=== PATIENT | male | born 1985 | race Caucasian/White ===

== ENCOUNTER → 2016-11-29 | Outpatient (REF) | payer OTHER | END | disposition home or self-care (01) | LOC: M LABDRWAD 12:19 → M LABNEURO 12:19 | PROVIDERS: ATTEND Physician Assistant | DX: Z20.2 Contact with and (suspected) exposure to infections with a predominantly sexual mode of transmission (principal) ==

== ENCOUNTER → 2016-12-03 | Outpatient (REF) | payer OTHER | END | disposition home or self-care (01) | LOC: M LAB REF 12:17 | PROVIDERS: ATTEND Physician Assistant | DX: Z20.2 Contact with and (suspected) exposure to infections with a predominantly sexual mode of transmission (principal); R21 Rash and other nonspecific skin eruption ==

== ENCOUNTER → 2017-08-26 | Outpatient (REF) | payer OTHER | LOC: M LAB REF 19:34 | PROVIDERS: ATTEND Physician Assistant | DX: J02.9 Acute pharyngitis, unspecified (principal) ==

== ENCOUNTER 2018-02-03 06:17 | Day surgery (SDC) | payer OTHER ==
[2018-02-03] MEDS ORDERED: LIDOCAINE 1% MDV 20ML VIAL SQ (06:30)
[2018-02-03] MEDS: LR 1,000 ML IV (07:09)
[2018-02-03] MEDS ORDERED: ONDANSETRON 4MG/2ML VIAL (J2405) As Ordered ×2 (07:42→21:05)
[2018-02-03] MEDS ORDERED: MIDAZOLAM INJ 2 MG/2 ML VIAL (J2250) As Ordered ×2 (07:42→20:41)
[2018-02-03] MEDS ORDERED: fentaNYL 100 MCG/2 ML INJECTION (J3010) As Ordered ×3 (07:42→20:42)
[2018-02-03] MEDS ORDERED: METOCLOPRAMIDE INJ 10MG/2ML VIAL (J2765) As Ordered ×2 (07:42→21:05)
[2018-02-03] MEDS ORDERED: dexameTHASONE 4 MG/ML 1ML VIAL (J1100) As Ordered (07:42)
[2018-02-03] MEDS ORDERED: ROCURONIUM BROMIDE 50 MG/5 ML VIAL As Ordered (07:42)
[2018-02-03] MEDS ORDERED: SUCCINYLCHOLINE 100 MG/5 ML SYRINGE (J0330) As Ordered ×2 (07:42→21:05)
[2018-02-03] MEDS ORDERED: LIDOCAINE 2% INJ 100 MG/5 ML SDV (FOR ANES.) As Ordered ×2 (07:42→21:05)
[2018-02-03] MEDS ORDERED: PROPOFOL 200 MG/20 ML VIAL As Ordered ×2 (07:42→21:05)
[2018-02-03] MEDS: LIDOCAINE 1% SDV INJ 30 ML VIAL As Ordered (07:45)
[2018-02-03] MEDS: BUPIVACAINE HCL 0.25% 30 ML VIAL As Ordered (07:46)
[2018-02-03] MEDS ORDERED: MEPERIDINE INJ 25 MG/ML VIAL (J2175) As Ordered (08:17)
[2018-02-03] MEDS: MEPERIDINE INJ 25 MG/ML VIAL (J2175) IV ×2 (08:24→08:29)
[2018-02-03] MEDS ORDERED: HYDROcodone/APAP LIQUID 7.5-325MG 15ML UDC (LORTAB ELIXIR) As Ordered (08:33)
[2018-02-03] MEDS: HYDROcodone/APAP LIQUID 7.5-325MG 15ML UDC (LORTAB ELIXIR) PO (08:39)
[2018-02-03] MEDS ORDERED: LR 1,000 ML IV (08:45)
[2018-02-03] MEDS ORDERED: fentaNYL 100 MCG/2 ML INJECTION (J3010) IV (08:45)
[2018-02-03] MEDS ORDERED: PERCOCET 5MG/325MG TAB PO (08:45)
[2018-02-03] MEDS ORDERED: ONDANSETRON 4MG/2ML VIAL (J2405) IV (08:45)
[2018-02-03] MEDS ORDERED: METOCLOPRAMIDE INJ 10MG/2ML VIAL (J2765) IV (08:45)
[2018-02-03] MEDS ORDERED: LIDOCAINE VISCOUS 2% SOLN 15ML UDC PO (08:45)
== END 2018-02-03 09:33 | disposition home or self-care (01) ==
LOC: M SDC 06:17
DX: J35.01 Chronic tonsillitis (principal); J35.8 Other chronic diseases of tonsils and adenoids; K21.9 Gastro-esophageal reflux disease without esophagitis; G25.81 Restless legs syndrome; Z79.899 Other long term (current) drug therapy
CPT/HCPCS: 42826

== ENCOUNTER 2018-02-03 19:13 | Day surgery (SDC) | payer OTHER ==
[2018-02-03] MEDS ORDERED: BUPIVACAINE HCL 0.5% 30 ML VIAL As Ordered (20:56)
[2018-02-03] MEDS ORDERED: HYDROcodone/APAP LIQUID 7.5-325MG 15ML UDC (LORTAB ELIXIR) As Ordered (21:32)
[2018-02-03] MEDS: ANEXSIA, NORCO 7.5MG/325MG TABLET(HYDROCODONE/APAP) PO (21:39)
[2018-02-03] MEDS ORDERED: ONDANSETRON 4MG/2ML VIAL (J2405) IV (21:45)
[2018-02-03] MEDS ORDERED: PERCOCET 5MG/325MG TAB PO (21:45)
[2018-02-03] MEDS ORDERED: LR 1,000 ML IV (21:45)
[2018-02-03] MEDS ORDERED: fentaNYL 100 MCG/2 ML INJECTION (J3010) IV (21:45)
[2018-02-03] MEDS ORDERED: MEPERIDINE INJ 25 MG/ML VIAL (J2175) IV (21:45)
[2018-02-03] MEDS ORDERED: METOCLOPRAMIDE INJ 10MG/2ML VIAL (J2765) IV (21:45)
== END 2018-02-03 22:20 | disposition home or self-care (01) ==
LOC: M SDC 22:20 → M ED 19:13 → M SDC 20:37
DX: J95.830 Postprocedural hemorrhage of a respiratory system organ or structure following a respiratory system procedure (principal); K21.9 Gastro-esophageal reflux disease without esophagitis; G25.81 Restless legs syndrome; Z79.899 Other long term (current) drug therapy
CPT/HCPCS: 42962

== ENCOUNTER → 2018-04-07 | Outpatient (CLI) | payer OTHER | LOC: M ST 11:00 | DX: R13.10 Dysphagia, unspecified (principal) ==

== ENCOUNTER 2018-04-24 16:13 | Outpatient (RCR) | payer OTHER | END 2018-05-13 | LOC: M ST 16:13 | DX: Z51.89 Encounter for other specified aftercare (principal); R13.10 Dysphagia, unspecified ==

== ENCOUNTER 2018-06-26 14:13 | Emergency (ER) | payer OTHER | END 2018-06-26 16:15 | disposition home or self-care (01) | LOC: M ED 14:13 | DX: S60.221A Contusion of right hand, initial encounter (principal); S60.00XA Contusion of unspecified finger without damage to nail, initial encounter; W23.0XXA Caught, crushed, jammed, or pinched between moving objects, initial encounter; Y92.89 Other specified places as the place of occurrence of the external cause; K21.9 Gastro-esophageal reflux disease without esophagitis; B02.9 Zoster without complications; F90.9 Attention-deficit hyperactivity disorder, unspecified type; Z79.899 Other long term (current) drug therapy | CPT/HCPCS: 73130 ==

== ENCOUNTER → 2019-11-11 | Outpatient (CLI) | payer OTHER ==
[~2019-11-11] MED LIST: ADDE20CA3 PO; CLAR1TAB2 PO; FLON1SPR; HYDR-2809 PO; IBUP0.77 PO; LIDO1SOL8 MT; MUCI600T31 PO; NAPR-837 PO; OMEP40CA97 PO; VALT500T PO; ZZZQ25CA PO
--- NOTE | 2019-11-11 11:28 | REP ---
Clinical: Trauma. Technique: AP, lateral, bilateral oblique views right foot . Findings: The osseous structures and joint spaces are intact and normal. There is no evidence for acute fracture or dislocation. Surrounding soft tissues are unremarkable. No subcutaneous emphysema or radiodense foreign body. Impression: Age-appropriate right foot series . No acute fracture or dislocation. Electronically Signed by Bakari Dobbs MD 11/11/2019 11:19 A
== END ==
LOC: M LRY 11:08
PROVIDERS: ATTEND Physician Assistant
DX: S99.921A Unspecified injury of right foot, initial encounter (principal); X58.XXXA Exposure to other specified factors, initial encounter; Y92.89 Other specified places as the place of occurrence of the external cause; Y93.9 Activity, unspecified; Y99.9 Unspecified external cause status

== ENCOUNTER → 2021-09-11 | Outpatient (CLI) | payer OTHER ==
[~2021-09-11] MED LIST changes: -HYDR-2809 PO; +HYDR-4431 PO; -LIDO1SOL8 MT; +LIDO2SOL17 MT; +OMEP40CA4 PO; -OMEP40CA97 PO
--- NOTE | 2021-09-11 15:39 | REP ---
INDICATION: MURDOCK. COMPARISON: 05/26/2015 TECHNIQUE: PA and lateral FINDINGS: The superior mediastinal structures are midline. The cardiac silhouette is unremarkable in size, shape, and position. The diaphragmatic surfaces of the lungs are regular, and the costophrenic angles are clear. The pulmonary brown are clear. The imaged osseous structures are intact. IMPRESSION: There is no acute cardiopulmonary disease. <Electronically signed by Brayden Desai > 09/11/21 [id number]
== END ==
LOC: M ADAMS 15:21
PROVIDERS: ATTEND Physician Assistant Medical
DX: R06.00 Dyspnea, unspecified (principal); R06.2 Wheezing

== ENCOUNTER → 2021-09-28 | Outpatient (CLI) | payer OTHER ==
--- NOTE | 2021-09-28 08:27 | PFTRPT ---
Site: [facility], [address] [place] [address], [id number] ID: [id number] Name: YUE BYRD Visit Date: 09/28/2021 Second ID: [id number] Referring Doctor: Madina Singleton PA-C Reviewing Doctor: Eber Perez MD Computing Machine Operator: Manjula GUY RRT Age: 36 : 1985 Sex: Male Race: Height: 73.00 Inches Weight: 220.00 Lbs BSA: 2.24 Order IDs: [id number] Requested Test(s): <RESP-PFT.PFT B/A> Diagnosis: R06.00 test meet the ATS standards for acceptability and repeatability. Pt was given four puffs of albuterol for post bronchodilator. Review Status: Not Reviewed Pre-Bronch Post-Bronch Pred Actual %Pred Actual %Chng SPIROMETRY FVC (L) 5.86 5.21 88 5.45 4 FEV1 (L) 4.67 4.53 97 4.49 FEV1/FVC (%) 80 87 108 82 -5 FEF 25% (L/sec) 8.67 10.45 120 9.19 -12 FEF 50% (L/sec) 5.48 6.54 119 6.65 1 FEF 75% (L/sec) 2.08 2.83 136 3.22 13 FEF 25-75% (L/sec) 4.39 5.73 130 5.91 3 FEF Max (L/sec) 10.91 11.05 101 10.20 -7 FIVC (L) 5.01 5.36 6 FIF 50% (L/sec) 5.31 6.80 128 7.43 9 FIF Max (L/sec) 7.26 7.49 3 MVV (L/min) 179 162 90 Expiratory Time (sec) 6.38 6.17 -3 Back Extrap Vol (L) 0.14 0.12 -14 Time To FEFmax (sec) 0.082 0.070 -14 LUNG VOLUMES SVC (L) 5.59 5.23 93 IC (L) 3.73 3.72 99 ERV (L) 1.86 1.51 81 TGV (L) 3.80 3.48 91 RV (Pleth) (L) 1.94 1.97 101 TLC (Pleth) (L) 7.53 7.21 95 RV/TLC (Pleth) (%) 26 27 105 DIFFUSION DLCOunc (ml/min/mmHg) 34.84 34.67 99 DL/VA (ml/min/mmHg/L) 4.63 5.05 109 VA (L) 7.53 6.86 91 BHT (sec) 9.94 IVC (L) 5.13 TLC (SB) (L) 7.01 AIRWAYS RESISTANCE Raw (cmH2O/L/s) 1.45 0.56 38 Gaw (L/s/cmH2O) 1.03 1.79 173 sRaw (cmH2O*s) 4.76 1.85 38 sGaw (1/cmH2O*s) 0.20 0.54 270
== END ==
LOC: M CARPUL 07:50
PROVIDERS: ATTEND Physician Assistant Medical
DX: R06.00 Dyspnea, unspecified (principal)

== ENCOUNTER → 2022-11-24 | Outpatient (CLI) | payer OTHER | LOC: M RAD 16:29 | PROVIDERS: ATTEND Physician Assistant | DX: M51.16 Intervertebral disc disorders with radiculopathy, lumbar region (principal) ==

== ENCOUNTER → 2022-12-15 | Outpatient (CLI) | payer OTHER ==
[~2022-12-15] MED LIST changes: +LIDO15SO4 MT; -LIDO2SOL17 MT
== END ==
LOC: M RAD 09:57
PROVIDERS: ATTEND Physician Assistant
DX: M51.16 Intervertebral disc disorders with radiculopathy, lumbar region (principal)

== ENCOUNTER → 2022-12-31 | Outpatient (CLI) | payer OTHER ==
[~2022-12-31] MED LIST changes: +PROHANCE 279.3MG/ML 15ML VIAL As Ordered ONE; +PROHANCE 279.3MG/ML 5ML VIAL As Ordered ONE
== END ==
LOC: M RAD 13:57
PROVIDERS: ATTEND Physician Assistant
DX: M51.16 Intervertebral disc disorders with radiculopathy, lumbar region (principal)

== ENCOUNTER → 2023-02-03 | Outpatient (CLI) | payer OTHER ==
[~2023-02-03] MED LIST changes: -PROHANCE 279.3MG/ML 15ML VIAL As Ordered ONE; -PROHANCE 279.3MG/ML 5ML VIAL As Ordered ONE
== END ==
LOC: M RAD 08:44
PROVIDERS: ATTEND Physician Assistant Medical
DX: K82.4 Cholesterolosis of gallbladder (principal); R16.0 Hepatomegaly, not elsewhere classified

== ENCOUNTER → 2023-04-07 | Outpatient (CLI) | payer OTHER ==
[~2023-04-07] MED LIST changes: +LIDO15SO MT; -LIDO15SO4 MT
== END ==
LOC: M WHC 08:05
PROVIDERS: ATTEND Physician Assistant Medical
DX: R22.32 Localized swelling, mass and lump, left upper limb (principal); R59.1 Generalized enlarged lymph nodes

== ENCOUNTER → 2023-04-18 | Outpatient (CLI) | payer OTHER ==
[~2023-04-18] MED LIST changes: +LIDOCAINE 1% MDV 20ML VIAL As Ordered ONE
[2023-04-18 11:37] VITALS: BP 154/85
== END ==
LOC: M IRPRO 11:05
PROVIDERS: ATTEND Physician Assistant Medical
DX: R59.1 Generalized enlarged lymph nodes (principal)

== ENCOUNTER 2023-06-14 08:22 | Emergency (ER) | payer OTHER ==
[~2023-06-14] VITALS: Ht 185.4 cm; Wt 94.9 kg
[~2023-06-14 08:22] MED LIST changes: -LIDOCAINE 1% MDV 20ML VIAL As Ordered ONE
[2023-06-14] MEDS ORDERED: DICY-61 PO (08:31)
[2023-06-14 09:11] LABS: BASO % 0.3 % (0.0-1.0); EOS % 0.1 % (0.0-3.0); HEMATOCRIT 49.3 % (42.0-52.0); HEMOGLOBIN 16.9 g/dl (13.5-17.5); LYMPH # 0.7 10^3/uL (1.5-5.0); LYMPH % 6.2 % (24.0-44.0); MEAN CORPUSCULAR HEMOGLOBIN 29.8 pg (27.0-33.0); MEAN CORPUSCULAR HGB CONC 34.3 g/dl (32.0-36.5); MEAN CORPUSCULAR VOLUME 86.9 fl (80.0-96.0); MONO # 0.6 10^3/uL (0.0-0.8); NEUTROPHILS # 10.4 10^3/uL (1.5-8.5); NEUTROPHILS % 86.7 % (36.0-66.0); PLATELET COUNT, AUTOMATED 241 10^3/uL (150-450); RED BLOOD COUNT 5.67 10^6/uL (4.30-6.10)
[2023-06-14 09:32] LABS: LIPASE 29 U/L (12-53)
[2023-06-14 09:34] LABS: ALBUMIN 4.5 G/DL (3.2-5.2); ALKALINE PHOSPHATASE 107 U/L (46-116); ALT/SGPT 59 U/L (7.0-40); AST/SGOT 12 U/L (<34); BILIRUBIN,DIRECT 0.4 MG/DL (<0.4); BILIRUBIN,TOTAL 1.5 MG/DL (0.3-1.2); BLOOD UREA NITROGEN 15 MG/DL (9-23); CALCIUM LEVEL 9.8 MG/DL (8.5-10.1); CARBON DIOXIDE LEVEL 24 MMOL/L (20-31); CHLORIDE LEVEL 105 MMOL/L (98-107); CREATININE FOR GFR 0.98 MG/DL (0.70-1.30); GLOMERULAR FILTRATION RATE > 60.0 (>60); GLUCOSE, FASTING 108 MG/DL (60-100); POTASSIUM SERUM 4.2 MMOL/L (3.5-5.1); SODIUM LEVEL 141 MMOL/L (136-145); TOTAL PROTEIN 7.4 G/DL (5.7-8.2)
[2023-06-14] MEDS ORDERED: KETOROLAC 30 MG/ML 1ML VIAL IV ONE (09:50)
[2023-06-14] MEDS ORDERED: NS 1,000 ML IV ONE ×2 (09:50)
[2023-06-14] MEDS ORDERED: METOCLOPRAMIDE INJ 10MG/2ML VIAL IV ONE (09:50)
[2023-06-14] MEDS ORDERED: ISOVUE-370 76% 100ML VIAL As Ordered ONE (11:34)
[2023-06-14] MEDS ORDERED: REGL10TA6 PO (14:12)
[2023-06-14 14:24] VITALS: BP 130/83; TEMP 98.2; O2SAT 98
== END 2023-06-14 14:26 | disposition home or self-care (01) ==
LOC: M ED 08:22
DX: R11.2 Nausea with vomiting, unspecified (principal); R19.7 Diarrhea, unspecified; Z79.899 Other long term (current) drug therapy
CPT/HCPCS: 74177; 80048; 80076; 83690; 85025; 96374; 96375; 99284; J1885; J2765; Q9967

== ENCOUNTER 2023-07-05 11:32 | Day surgery (SDC) | payer OTHER ==
[~2023-07-05] VITALS: Ht 185.4 cm; Wt 97.1 kg
[~2023-07-05 11:32] MED LIST changes: +DICY-61 PO; +REGL10TA6 PO; +ceFAZolin SOD 2 GM in IV 1 EA IV ONE
[2023-07-05] MEDS ORDERED: LR 1,000 ML IV SCH (11:45)
[2023-07-05] MEDS ORDERED: MIDAZOLAM INJ 2MG/2ML VIAL As Ordered ONE (12:49)
[2023-07-05] MEDS ORDERED: fentaNYL 100 MCG/2 ML INJECTION As Ordered ONE (12:50)
[2023-07-05] MEDS ORDERED: ISOSULFAN BLUE(LYMPHAZURIN) 1% 50MG/5ML VIAL As Ordered ONE (13:05)
[2023-07-05] MEDS ORDERED: fentaNYL 100 MCG/2 ML INJECTION IV PRN (13:55)
[2023-07-05] MEDS ORDERED: oxyCODONE 5MG TAB PO PRN (13:55)
[2023-07-05] MEDS ORDERED: MORPHINE 2 MG/ML 1ML VIAL IV PRN (13:55)
[2023-07-05] MEDS ORDERED: ONDANSETRON 4MG 2ML VIAL IV PRN (13:55)
[2023-07-05] MEDS ORDERED: NS 1,000 ML IV SCH (14:25)
[2023-07-05 14:47] VITALS: BP 141/86; TEMP 97.6; O2SAT 97
== END 2023-07-05 15:24 | disposition home or self-care (01) ==
LOC: M SDC 11:32
PROVIDERS: ATTEND Surgery
DX: D17.1 Benign lipomatous neoplasm of skin and subcutaneous tissue of trunk (principal); F90.9 Attention-deficit hyperactivity disorder, unspecified type; K21.9 Gastro-esophageal reflux disease without esophagitis; B02.9 Zoster without complications; G25.81 Restless legs syndrome; Z87.891 Personal history of nicotine dependence; Z79.899 Other long term (current) drug therapy
CPT/HCPCS: 11403; 88304; J0665; J0690; J2250; J3010

== ENCOUNTER → 2024-06-11 | Outpatient (CLI) | payer OTHER ==
[~2024-06-11] MED LIST changes: -LIDO15SO MT; +LIDO15SO8 MT; -ceFAZolin SOD 2 GM in IV 1 EA IV ONE
== END ==
LOC: M PLAIMG 13:46
PROVIDERS: ATTEND Nurse Practitioner Family
DX: M54.16 Radiculopathy, lumbar region (principal); M54.50 Low back pain, unspecified

== ENCOUNTER → 2025-01-04 | Outpatient (REF) | payer OTHER | LOC: M SFHCADAM 11:34 | PROVIDERS: ATTEND Physician Assistant Medical | DX: R33.9 Retention of urine, unspecified (principal); R39.198 Other difficulties with micturition ==

== ENCOUNTER → 2025-01-07 | Outpatient (REF) | payer OTHER ==
[2025-01-07 17:59] LABS: APPEARANCE, URINE CLEAR (CLEAR); BACTERIA, URINE AUTO NEGATIVE (NEGATIVE); BILIRUBIN, URINE AUTO NEGATIVE (NEGATIVE); BLOOD, URINE BLOOD NEGATIVE (NEGATIVE); COLOR, URINE YELLOW (YELLOW); GLUCOSE, URINE (UA) AUTO NEGATIVE (NEGATIVE); KETONE, URINE AUTO NEGATIVE (NEGATIVE); LEUKOCYTE ESTERASE, URINE AUTO NEGATIVE (NEGATIVE); NITRITE, URINE AUTO NEGATIVE (NEGATIVE); PROTEIN, URINE AUTO NEGATIVE (NEGATIVE); RBC, URINE AUTO 0 /HPF (0-3); SPECIFIC GRAVITY URINE AUTO 1.018 (1.002-1.035); SQUAMOUS EPITHELIAL CELL UR AU 0 /HPF (0-6); UROBILINOGEN, URINE AUTO 0.2 mg/dL (0.0-2.0); WBC, URINE AUTO 0 /HPF (0-3)
== END ==
LOC: M SFHCADAM 17:08
PROVIDERS: ATTEND Physician Assistant Medical
DX: R33.9 Retention of urine, unspecified (principal); R39.198 Other difficulties with micturition

== ENCOUNTER → 2025-03-31 | Outpatient (REF) | payer OTHER ==
[2025-03-31 18:50] LABS: Trichomonas vaginalis (AMP) NOT DETECTED (NEGATIVE)
[2025-03-31 19:14] LABS: GC DNA AMPLIFICATION NEGATIVE (NEGATIVE)
== END ==
LOC: M WUC 17:18
PROVIDERS: ATTEND Student in an Organized Health Care Education/Training Program
DX: R30.0 Dysuria (principal)

== ENCOUNTER 2025-05-31 22:55 | Emergency (ER) | payer OTHER ==
[~2025-05-31] VITALS: Ht 185.4 cm; Wt 102.3 kg
[2025-06-01 00:26] LABS: BASO # 0.0 10^3/uL (0.0-0.2); BASO % 0.2 % (0.0-1.0); EOS # 0.0 10^3/uL (0.0-0.5); EOS % 0.1 % (0.0-3.0); LYMPH # 1.0 10^3/uL (1.5-5.0); LYMPH % 4.5 % (24.0-44.0); MONO # 1.2 10^3/uL (0.0-0.8); MONO % 5.5 % (2.0-8.0); NEUTROPHILS # 19.6 10^3/uL (1.5-8.5); NEUTROPHILS % 89.0 % (36.0-66.0); PLATELET COUNT, AUTOMATED 253 10^3/uL (150-450)
[2025-06-01 00:41] LABS: ALT/SGPT 61 U/L (7.0-40); AST/SGOT 49 U/L (<34); CK-MB VALUE MASS 2.2 NG/ML (<3.6); CPK CREATINE PHOSPHOKINASE 237 U/L (46-171); MB/CK RELATIVE INDEX 0.92 (< OR =4)
[2025-06-01 00:42] LABS: INR 0.97
[2025-06-01] MEDS: KETOROLAC 30 MG/ML 1 ML VIAL IV ONE (01:09)
[2025-06-01] MEDS: HYDROMORPHONE HCL 0.5 MG/0.5 ML SYRINGE IV STA ×2 (01:10→02:49)
[2025-06-01] MEDS ORDERED: TEST200I14 IM (01:57)
[2025-06-01] MEDS ORDERED: CELE0.09 PO (01:57)
[2025-06-01] MEDS ORDERED: TADA5TAB2 PO (01:57)
[2025-06-01] MEDS ORDERED: AZEL1SPR3 NARES (01:57)
[2025-06-01] MEDS ORDERED: HOME MED LIST COMPLETE! XX SCH (02:00)
[2025-06-01] MEDS: diphenhydrAMINE 50 MG/ML VIAL IV STA (02:48)
[2025-06-01 02:49] VITALS: BP 139/88; TEMP 99; O2SAT 97
[2025-06-01] MEDS: ACETAMINOPHEN 500 MG TAB PO ONE (02:49)
[2025-06-01] MEDS ORDERED: ACET500P3 PO (02:55)
[2025-06-01] MEDS ORDERED: LIDO5TD TOP (02:55)
[2025-06-01] MEDS ORDERED: OXYC-517 PO (02:55)
[2025-06-01] MEDS ORDERED: NAPR-1405 PO (02:55)
[2025-06-01] MEDS ORDERED: ADDE20TA PO (03:39)
[2025-06-01] MEDS: NORCO 5/325MG TABLET (HOME DOSE PACK) PO SCH (03:39)
== END 2025-06-01 03:50 | disposition home or self-care (01) ==
LOC: M ED 22:55
DX: S32.000A Wedge compression fracture of unspecified lumbar vertebra, initial encounter for closed fracture (principal); Y92.9 Unspecified place or not applicable; Y93.9 Activity, unspecified; Y99.9 Unspecified external cause status; V86.15XA Passenger of 3- or 4- wheeled all-terrain vehicle (ATV) injured in traffic accident, initial encounter; Z79.1 Long term (current) use of non-steroidal anti-inflammatories (NSAID); Z79.899 Other long term (current) drug therapy; Z79.890 Hormone replacement therapy
CPT/HCPCS: 70450; 71045; 72125; 72128; 72131; 80047; 80076; 82150; 82550; 82553; 83690; 84484; 85025; 85610; 85730; 86850; 86900; 86901; 93041; 94760; 96374; 96375; 96376; 99291; J1171; J1200; J1885

== ENCOUNTER → 2025-06-05 | Outpatient (REF) | payer OTHER ==
[~2025-06-05] MED LIST changes: +ACET500P3 PO; +ADDE20TA PO; +AZEL1SPR3 NARES; +CELE0.09 PO; +LIDO5TD TOP; +NAPR-1405 PO; +OXYC-517 PO; +TADA5TAB2 PO; +TEST200I14 IM
[2025-06-05 13:06] LABS: PLATELET COUNT, AUTOMATED 265 10^3/uL (150-450)
[2025-06-05 13:36] LABS: PSA SCREENING 0.75 NG/ML (< 4.00)
[2025-06-05 13:41] LABS: TESTOSTERONE 366.0 NG/DL (241-827)
== END ==
LOC: M SFHCADAM 08:35
PROVIDERS: ATTEND Physician Assistant
DX: E29.1 Testicular hypofunction (principal)

== ENCOUNTER → 2025-08-19 | Outpatient (CLI) | payer OTHER ==
[2025-08-19 13:06] LABS: PLATELET COUNT, AUTOMATED 258 10^3/uL (150-450)
== END ==
LOC: M WUC 09:40
PROVIDERS: ATTEND Physician Assistant
DX: E29.1 Testicular hypofunction (principal)